=== PATIENT | female | born 1975 | race African-American/Black ===

== ENCOUNTER 2018-04-23 17:00 | Emergency (ER) | payer MEDICAID ==
[~2018-04-23] VITALS: Ht 182.9 cm; Wt 122.5 kg
[2018-04-23 17:11] VITALS: BP 114/58
[2018-04-23] MEDS ORDERED: Ketorolac 60mg Inj IM ONE (17:15)
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
[2018-04-23] MEDS ORDERED: NORCO 5-325 TA1 EACH ORAL (18:37)
[2018-04-23 18:48] VITALS: BP 112/56
--- NOTE | 2018-04-24 10:10 | Diagnostic Imaging Report ---
Indication: Pain Technique: 2 views of the left knee Comparison: none Findings: No acute fractures. No dislocations. The joint spaces are preserved. No suprapatellar effusion. Hardware is seen in the tibia Impression: No acute process
--- NOTE | 2018-04-24 10:20 | Diagnostic Imaging Report ---
Indication: Reason For Exam: PAIN Technique: 2 views of the left tibia and fibula Comparison: none Findings: Surgical hardware is seen reducing old healed distal tibial fracture. There is also an old healed distal fibular fracture. No acute fractures. No dislocations. No radiopaque foreign body other than the surgical hardware Impression: No acute process. Findings as noted
--- NOTE | 2018-04-24 10:21 | Diagnostic Imaging Report ---
Indication: Pain Technique: 2 views of the left ankle Comparison: none Findings: Exam is limited due to the use of only 2 views. There are old healed fractures of the left distal tibia and distal fibula. Surgical hardware is seen within the tibia. No acute fractures. No dislocations. Impression: Posttraumatic and postsurgical changes, as described No acute bony trauma
--- NOTE | 2018-04-24 10:42 | Diagnostic Imaging Report ---
Indication: Pain Technique: 2 views of the right tibia and fibula Comparison: none Findings: Surgical hardware is seen reducing old healed mid to distal tibial fracture. There is also an old healed mid to distal fibular fracture. No acute fractures. No dislocations. No radiopaque foreign body other than the surgical hardware Impression: No acute bony trauma Postsurgical and posttraumatic changes, as described
--- NOTE | 2018-04-24 10:44 | Diagnostic Imaging Report ---
Indication: Pain Technique: 2 views of the right knee Comparison: None Findings: No suprapatellar effusion. No acute fractures. No dislocations. The joint spaces are preserved. Surgical hardware is seen in the proximal tibia Impression: No acute process
--- NOTE | 2018-04-24 10:45 | Diagnostic Imaging Report ---
Indication: Pain Technique: 2 views of the right ankle Comparison: none Findings: Exam is somewhat limited due to the availability of only 2 views. Surgical hardware is seen in the distal tibia. There is evidence of healed fracture deformity of the mid tibia and fibula. No acute ankle fracture. No dislocations. The joint spaces are preserved Impression: Post surgical changes, as described. No acute bony trauma
== END 2018-04-23 19:00 | disposition home or self-care (01) ==
LOC: EDBD 17:00 → EMR 17:35
DX: M79.605 Pain in left leg (principal); M79.604 Pain in right leg; Z98.890 Other specified postprocedural states
CPT/HCPCS: 96372; 99284